=== PATIENT | female | born 1985 | race Caucasian/White ===

== ENCOUNTER 2018-03-19 17:16 | Inpatient (IN) | payer OTHER ==
[~2018-03-19] VITALS: Ht 160 cm; Wt 70.8 kg
[~2018-03-19 17:16] MED LIST: CITRIC ACID/SODIUM CITRATE 30 ML SOLUTION UDCUP PO PRN; LIDOCAINE/PF 1% 30 ML VIAL INJ PRN; METHYLERGONOVINE MALEATE 0.2 MG/ML VIAL IM PRN; METOCLOPRAMIDE HCL 5 MG/ML 2 ML VIAL IVP PRN; OXYTOCIN 30 UNITS/LACT RINGERS 500 ML IV ONE; RINGERS SOLUTION,LACTATED 1,000 ML IV PRN
[2018-03-19 17:37] VITALS: BP 124/73
[2018-03-19] MEDS ORDERED: PNV1TABL54 PO (17:39)
[2018-03-19] MEDS: RINGERS SOLUTION,LACTATED 1,000 ML IV SCH (17:53)
[2018-03-19] MEDS ORDERED: OXYTOCIN 30 UNITS/LACT RINGERS 500 ML IV PRN (18:23)
[2018-03-19 18:31] LABS: BASOPHILS % (AUTO) 0.5 % (0.0-2.0); EOSINOPHILS % (AUTO) 0.9 % (1.0-6.0); HEMATOCRIT 32.6 % (36-46); HEMOGLOBIN 10.9 g/dL (12.0-16.0); LYMPHOCYTES # (AUTO) 1.9 K/uL (1.0-4.8); LYMPHOCYTES % (AUTO) 25.9 % (22.0-44.0); MEAN CORPUSCULAR HEMOGLOBIN 30.8 pg (26.0-34.0); MEAN CORPUSCULAR HGB CONC 33.3 G/dL (31.0-37.0); MEAN CORPUSCULAR VOLUME 92 fL (80-100); MONOCYTES # (AUTO) 0.5 K/uL (0.1-1.0); MONOCYTES % (AUTO) 6.7 % (2.0-9.0); NEUTROPHILS # (AUTO) 4.8 K/uL (1.8-7.7); PLATELET COUNT (AUTO) 161 K/uL (150-450); RED BLOOD CELL COUNT(AUTO) 3.53 MIL/uL (4.00-5.20); RED CELL DISTRIBUTION WIDTH 13.3 % (11.5-14.5)
[2018-03-19 19:28] LABS: APPEARANCE,URINE CLEAR (CLEAR); BILIRUBIN,URINE NEGATIVE (NEGATIVE); GLUCOSE, URINE (UA) NEGATIVE (NEGATIVE); KETONES,URINE NEGATIVE (NEGATIVE); LEUKOCYTE ESTERASE ,URINE TRACE (NEGATIVE); NITRATE,URINE NEGATIVE (NEGATIVE); OCCULT BLOOD,URINE NEGATIVE (NEGATIVE); PH,URINE 6.5 (5.0-8.0); PROTEIN,URINE NEGATIVE (NEGATIVE); UROBILINOGEN,URINE 0.2 mg/dL (<=1.0)
[2018-03-19] MEDS ORDERED: OXYGEN THERAPY IH SCH (20:00)
[2018-03-19] MEDS ORDERED: ROPIVACAINE HCL/PF 0.2% 100 ML ED ONE (20:14)
[2018-03-19] MEDS ORDERED: LIDOCAINE/PF 2% 5 ML VIAL ONE (20:14)
[2018-03-19 20:22] LABS: RBC,URINE None Seen /HPF (0-2)
[2018-03-19 20:23] LABS: BACTERIA,URINE Few /HPF (None Seen); SQUAMOUS EPITHELIAL CELL,UR Few /LPF (None Seen)
[2018-03-19] MEDS ORDERED: DiphenhydrAMINE HCL 50 MG/ML VIAL IVP PRN (20:30)
[2018-03-19] MEDS ORDERED: NALBUPHINE HCL 10 MG/ML VIAL IVP PRN (20:30)
[2018-03-19] MEDS ORDERED: ONDANSETRON HCL 4 MG/2 ML VIAL IVP PRN (20:30)
[2018-03-19] MEDS ORDERED: ROPIVACAINE HCL/PF 0.2% 100 ML ED PRN (20:30)
[2018-03-20] MEDS: RINGERS SOLUTION,LACTATED 1,000 ML IV SCH ×3 (04:47→11:41)
[2018-03-20] MEDS ORDERED: OXYTOCIN 30 UNITS/LACT RINGERS 500 ML IV ONE (13:28)
[2018-03-20] MEDS ORDERED: OxyCODONE HCL/ACETAMINOPHEN 5-325 MG TABLET PO PRN ×2 (13:30)
[2018-03-20] MEDS ORDERED: BENZOCAINE 20%/MENTHOL 56 GM SPRAY CANISTER TP PRN (13:30)
[2018-03-20] MEDS ORDERED: GLYCERIN/WITCH HAZEL LEAF 40 PADS JAR TP PRN (13:30)
[2018-03-20] MEDS ORDERED: LIDOCAINE/PF 1% 30 ML VIAL INJ PRN (13:30)
[2018-03-20] MEDS ORDERED: LANOLIN 7 GM OINTMENT TP PRN (13:30)
[2018-03-20] MEDS: IBUPROFEN 800 MG TABLET PO PRN (13:54)
[2018-03-20] MEDS: MAGNESIUM HYDROXIDE SUSPENSION 30 ML UDCUP PO PRN (21:04)
[2018-03-21 06:24] LABS: BASOPHILS % (AUTO) 0.3 % (0.0-2.0); EOSINOPHILS % (AUTO) 0.1 % (1.0-6.0); LYMPHOCYTES # (AUTO) 1.5 K/uL (1.0-4.8); LYMPHOCYTES % (AUTO) 9.9 % (22.0-44.0); MEAN CORPUSCULAR HEMOGLOBIN 32.7 pg (26.0-34.0); MEAN CORPUSCULAR HGB CONC 35.7 G/dL (31.0-37.0); MEAN CORPUSCULAR VOLUME 92 fL (80-100); MONOCYTES % (AUTO) 6.5 % (2.0-9.0); NEUTROPHILS # (AUTO) 12.3 K/uL (1.8-7.7); NEUTROPHILS % (AUTO) 83.2 % (40.0-70.0); RED BLOOD CELL COUNT(AUTO) 2.08 MIL/uL (4.00-5.20); RED CELL DISTRIBUTION WIDTH 13.4 % (11.5-14.5)
[2018-03-21 06:48] LABS: HEMOGLOBIN 6.8 g/dL (12.0-16.0)
[2018-03-21] MEDS ORDERED: IRON SUCROSE COMPLEX 100 MG in SODIUM CHLORIDE 0.9% 100 ML IV ONE (07:15)
[2018-03-21] MEDS ORDERED: RINGERS SOLUTION,LACTATED 1,000 ML IV ONE (07:30)
[2018-03-21 07:46] LABS: PLATELET COUNT (AUTO)-OB 126 K/uL (150-450)
[2018-03-21] MEDS: MAGNESIUM HYDROXIDE SUSPENSION 30 ML UDCUP PO PRN (08:27)
[2018-03-21] MEDS: IBUPROFEN 800 MG TABLET PO PRN (08:27)
[2018-03-21] MEDS ORDERED: IBUP-2071 PO (11:00)
[2018-03-21] MEDS ORDERED: FERR-89 PO (11:01)
[2018-03-21] MEDS ORDERED: DSS100 PO (11:01)
[2018-03-21 12:30] LABS: BASOPHILS % (AUTO) 0.2 % (0.0-2.0); EOSINOPHILS % (AUTO) 0.2 % (1.0-6.0); LYMPHOCYTES # (AUTO) 1.4 K/uL (1.0-4.8); MEAN CORPUSCULAR HEMOGLOBIN 30.7 pg (26.0-34.0); MEAN CORPUSCULAR HGB CONC 33.2 G/dL (31.0-37.0); MEAN CORPUSCULAR VOLUME 93 fL (80-100); MONOCYTES % (AUTO) 6.6 % (2.0-9.0); NEUTROPHILS # (AUTO) 12.6 K/uL (1.8-7.7); PLATELET COUNT (AUTO)-OB 130 K/uL (150-450); RED BLOOD CELL COUNT(AUTO) 2.02 MIL/uL (4.00-5.20); RED CELL DISTRIBUTION WIDTH 13.6 % (11.5-14.5)
[2018-03-21 12:33] LABS: HEMATOCRIT 18.8 % (36-46); HEMOGLOBIN 6.2 g/dL (12.0-16.0)
== END 2018-03-21 14:20 | disposition home or self-care (01) | DRG 768 ==
LOC: 4S 17:16 → OBSVTOIN 17:16
PROVIDERS: ADMIT Obstetrics & Gynecology; ATTEND Obstetrics & Gynecology
PROC: 10D07Z3 Extraction of Products of Conception, Low Forceps, Via Natural or Artificial Opening (ICD-10-PCS; principal; 2018-03-20)
PROC: 0DQR0ZZ Repair Anal Sphincter, Open Approach (ICD-10-PCS; 2018-03-20)
PROC: 10907ZC Drainage of Amniotic Fluid, Therapeutic from Products of Conception, Via Natural or Artificial Opening (ICD-10-PCS; 2018-03-20)
PROC: 3E0R3BZ Introduction of Anesthetic Agent into Spinal Canal, Percutaneous Approach (ICD-10-PCS; 2018-03-20)
PROC: 00HU33Z Insertion of Infusion Device into Spinal Canal, Percutaneous Approach (ICD-10-PCS; 2018-03-20)
DX: O70.20 Third degree perineal laceration during delivery, unspecified (principal); Z37.0 Single live birth; Z3A.40 40 weeks gestation of pregnancy
CPT/HCPCS: 86850; 86900; 86901; J1756; J2590; J2795; J3490; J7050; J7120